=== PATIENT | female | born 1975 | race Caucasian/White ===

== ENCOUNTER 2016-03-20 13:51 | Emergency (ER) | payer SELFPAY ==
[2016-03-20] MEDS ORDERED: predniSONE 20 MG TAB ONE (14:04)
[2016-03-20] MEDS ORDERED: Benzonatate 100 MG CAP ONE (14:31)
--- NOTE | 2016-03-20 15:19 | PICIS ---
[facility] EMERGENCY RECORD TRIAGE (13:59 LGIB) TRIAGE NOTES: dry cough, wheezing. (13:59 LGIB) PATIENT: NAME: Shruti Shetty, AGE: 40, GENDER: female, : Sun 1975, TIME OF GREET: Mon Mar 20, 2016 13:52, PREFERRED LANGUAGE: [place], ETHNICITY: Not or , ECODE BILLING MAP: [facility], SSN: [id number], Zip Code: [address], KG WEIGHT: [phone], PHONE: , , , PERSON ID: [id number], PAYMENT: SJX Self Pay, PCP: none. (13:59 LGIB) COMPLAINT: Cough. (13:59 LGIB) ADMISSION: URGENCY: 4 Non Urgent, ADMISSION SOURCE: Home, TRANSPORT: CAR, BED: ER -02. (13:59 LGIB) SIRS SCORING: Heart Rate 55-109 (0), Temp range 96.8-101.1 (0), respiratory rate 12-24 (0), Mental Status altered: no (0), Total SIRS Score 0. (14:09 LGIB) PROVIDERS: TRIAGE NURSE: Ayana Collado RN. (13:59 LGIB) PREVIOUS VISIT ALLERGIES: No Known Drug Allergies. (13:59 LGIB) No Known Drug Allergies. (14:02 LGIB) KNOWN ALLERGIES No Known Drug Allergies CURRENT MEDICATIONS (14:01 LGIB) None VITAL SIGNS (14:02 LGIB) VITAL SIGNS: BP: 130/91, Pulse: 86, Resp: 20 (Non-Labored), Temp: 98.7 (Oral), O2 sat: 99 on Room Air, Time: 03/20/2016 14:02. NURSING ASSESSMENT: RESPIRATORY /CHEST (14:05 LGIB) CONSTITUTIONAL: Complex assessment performed, Patient arrives ambulatory, Gait steady, History obtained from patient, Patient appears comfortable, Patient cooperative, Patient alert, Oriented to person, place and time, Skin warm, Skin dry, Skin normal in color, Mucous membranes pink, Mucous membranes moist, Patient is well-groomed, Patient complains of cough. RESPIRATORY/CHEST: Lungs auscultated, Breath sounds with wheezing, diffusely, Respiratory assessment findings include respiratory effort easy, Respirations regular, Conversing normally, Neck and chest exam findings include trachea midline, Chest expansion equal, Chest movement symmetrical, no signs of distress, no retractions noted, no cyanosis, Associated with cough, dry. SAFETY: Side rails up, Cart/Stretcher in lowest position, Call light within reach, Hospital ID band on. NURSING PROCEDURE: DISCHARGE NOTE (14:42 LSMI) DISCHARGE: Patient discharged to home, ambulating without assistance, driving self, unaccompanied, Summary of Care printed/ provided, Transition record given to patient, Discharge instructions &a-1R&a+25V*p+0X*c7323Y*c202B*c15G*c2P*p-0X&a-25V&a+1R Name: Shruti Shetty : 1975 F40 MedRec: [id number] AcctNum: [id number] Prepared: [facility] Mar 23, 2016 10:53 by Interface Page 1 of 6 pMD [facility] EMERGENCY RECORD given to patient, Prescriptions given and instructions on side effects given. NURSING PROCEDURE: RESPIRATORY INTERVENTIONS (14:07 LGIB) RESPIRATORY INTERVENTIONS: Respiratory interventions indicated for wheezing, Pre-intervention oxygen saturation 99%, Notes: JONATHAN. SAFETY: Side rails up, Cart/Stretcher in lowest position, Call light within reach, Hospital ID band on. ORDER DETAILS Order Name: ERRT * Smal Vol Neb Initial Trmt, Status: Active, Time: 14:04 03/20/2016, User: CATHERINE, - Ordered for: DO Kraus Matthew, - Entered by: DO Kraus Matthew - [facility] Mar 20, 2016 14:04, - Quantity: 1. MEDICATION ADMINISTRATION SUMMARY Drug Name: *Ariana Perles, Dose Ordered: 1 cap(s), Route: Oral, Status: Given, Time: 14:33 03/20/2016, Drug Name: predniSONE oral, Dose Ordered: 60 mg, Route: Oral, Status: Given, Time: 14:07 03/20/2016, Drug Name: DuoNeb, Dose Ordered: 3 mL, Route: Nebulize, Status: Given, Time: 14:07 03/20/2016, *Additional information available in notes, Detailed record available in Medication Service section. MEDICATION SERVICE DuoNeb: Order: DuoNeb (ipratropium bromide/albuterol sulfate) - Dose: 3 mL : Nebulize Ordered by: Obinna Kraus DO Entered by: Obinna Kraus DO SunMar 20, 2016 14:04 Documented as given by: Ayana Collado RN SunMar 20, 2016 14:07 Patient, Medication, Dose, Route and Time verified prior to administration. Site: Medication administered via Hand-held nebulizer, With oxygen, Correct patient, time, route, dose and medication confirmed prior to administration, Patient advised of actions and side-effects prior to administration, Allergies confirmed and medications reviewed prior to administration, Patient in position of comfort, Side rails up, Cart in lowest position. : Follow Up : Response assessment performed, No signs or symptoms of allergic reaction noted. (14:33 LGIB) predniSONE oral: Order: predniSONE oral (prednisone) - Dose: 60 mg : Oral Ordered by: Obinna Kraus DO Entered by: Obinna Kraus DO SunMar 20, 2016 14:04 Documented as given by: Ayana Collado RN SunMar 20, 2016 14:07 Patient, Medication, Dose, Route and Time verified prior to &a-1R&a+25V*p+0X*f4929F*c202B*c15G*c2P*p-0X&a-25V&a+1R Name: Shruti Shetty : 1975 F40 MedRec: [id number] AcctNum: [id number] Prepared: [facility] Mar 23, 2016 10:53 by Interface Page 2 of 6 pMD [facility] EMERGENCY RECORD administration. Site: Medication administered P.O., Correct patient, time, route, dose and medication confirmed prior to administration, Patient advised of actions and side-effects prior to administration, Allergies confirmed and medications reviewed prior to administration, Patient in position of comfort, Side rails up, Cart in lowest position. Tessalon Perles: Order: Tessalon Perles (benzonatate) - Dose: 1 cap(s) : Oral Notes: VOV Dr Kraus Ordered by: Obinna Kraus DO Entered by: Ayana Collado RN SunMar 20, 2016 14:33 Documented as given by: Ayana Collado RN SunMar 20, 2016 14:33 Patient, Medication, Dose, Route and Time verified prior to administration. Site: Medication administered P.O., Correct patient, time, route, dose and medication confirmed prior to administration, Patient advised of actions and side-effects prior to administration, Allergies confirmed and medications reviewed prior to administration, Patient in position of comfort, Side rails up, Cart in lowest position. HPI URI (14:59 MBRI) CHIEF COMPLAINT: Patient presents for evaluation of sore throat, Patient presents for evaluation of nasal congestion, Patient presents for evaluation of cough. HISTORIAN: History provided by patient. LOCATION: Symptoms are generalized. QUALITY: Pain is dull in nature, described as aching. SEVERITY: Maximum severity of symptoms mild, Currently symptoms are mild. TIME COURSE: Gradual onset of symptoms, 5, days priror to arrival, Symptoms are worsening. ASSOCIATED WITH: No associated chest pain, Associated with chills, Associated with fever, No associated headache, No associated neck pain, No associated shortness of breath. EXACERBATED BY: Patient's condition exacerbated by nothing. RELIEVED BY: Patient's condition relieved by nothing. ROS (14:59 MBRI) CONSTITUTIONAL: Historian reports chills, reports fatigue, reports fever. EYES: Negative eye review of systems. ENT: Historian denies otalgia, reports rhinorrhea, reports sinus pain, reports sore throat. CARDIOVASCULAR: Historian denies chest pain, denies dyspnea on exertion. RESPIRATORY: Historian reports cough, denies shortness of breath, reports sputum, denies stridor, reports wheezing. &a-1R&a+25V*p+0X*r0451P*c202B*c15G*c2P*p-0X&a-25V&a+1R Name: Shruti Shetty : 1975 F40 MedRec: [id number] AcctNum: [id number] Prepared: SunMar 23, 2016 10:53 by Interface Page 3 of 6 pMD [facility] EMERGENCY RECORD GI: Negative gastrointestinal review of systems, Historian denies abdominal pain, denies diarrhea, denies nausea, denies vomiting. MUSCULOSKELETAL: Historian denies injury, Denies any musculoskeletal pain. SKIN: Negative skin review of systems, Historian denies skin changes. NEUROLOGIC: Historian denies dizziness, denies headache. PAST MEDICAL HISTORY (14:02 LGIB) MEDICAL HISTORY: No past medical history, Flu vaccine not up to date, Tetanus not up to date, Pneumococcal vaccine not up to date. FEMALE SURGICAL HISTORY: Surgical history of section, Surgical history of tubal ligation, Surgical history of cholecystectomy. Reviewed 03/20/16. PSYCHIATRIC HISTORY: No previous psychiatric history. Reviewed 03/20/16. SOCIAL HISTORY: Patient denies alcohol use, Patient denies drug use, Patient currently uses tobacco, smokes cigarettes, daily, Patient smokes 1/2 packs per day. Reviewed 03/20/16. PHYSICAL EXAM (14:59 MBRI) CONSTITUTIONAL: Vital Signs Reviewed, Nursing notes reviewed. HEAD: Head exam included findings of head atraumatic, normocephalic. EYES: Eye exam included findings of eyelids normal to inspection, Pupils equally round and reactive to light, Extraocular muscles intact. ENT: Ear exam normal, external ear normal, tympanic membranes normal, Pharynx exam normal. NECK: Neck exam normal, no cervical adenopathy, no tenderness. RESPIRATORY CHEST: Respiratory exam included findings of no respiratory distress, Wheezing present, posteriorally, to the left upper lobe, to the right upper lobe, No rales, No rhonchi, Breath sounds not diminished, Chest exam included findings of chest movement symmetrical, no tenderness. CARDIOVASCULAR: Cardiovascular exam included findings of heart rate regular rate and rhythm, Heart sounds normal, Carotids normal. UPPER EXTREMITY: Upper extremity exam included findings of inspection normal, Motor strength normal, Radial pulse normal, no cyanosis, no clubbing, no edema. NEURO: Neuro exam findings include patient oriented to person, place and time, Speech normal, Gait normal. EVENTS TRANSFER: Triage to Emergency Emergency Room -02. (SunMar 20, 2016 13:59 LGIB) Removed from Emergency Emergency Room -02. (14:46 LSMI) &a-1R&a+25V*p+0X*b2013N*c202B*c15G*c2P*p-0X&a-25V&a+1R Name: Shruti Shetty : 1975 F40 MedRec: [id number] AcctNum: [id number] Prepared: Maria Del Rosario Mar 23, 2016 10:53 by Interface Page 4 of 6 pMD [facility] EMERGENCY RECORD O2SAT INTERPRETATION (14:29 MBRI) O2SAT: Oxygen saturation interpretation: Normal. DOCTOR NOTES (14:59 MBRI) TEXT: After re-evaluation the patient appears to be resting comfortably. No further resp distress and lung exam is improved. No impending resp failure or airway issues are present at this time. I have discussed the continued treatment with the patient and family and have answered questions. I have discussed the strict reasons for return and follow-up and medication needs have been addressed. The patient is stable for d/c home at this time. PROBLEM LIST No recorded problems DIAGNOSIS FINAL: PRIMARY: ACUTE BRONCHITIS UNSPECIFIED, ADDITIONAL: asthma exacerbation - acute. (14:35 MBRI) PRIMARY: Acute bronchitis. (14:59 MBRI) DISPOSITION PATIENT: Disposition Type: Discharge, Disposition: *Discharge Home, Condition: Improved. (14:35 MBRI) Patient left the department. (14:46 LSMI) INSTRUCTION (14:36 MBRI) DISCHARGE: BRONCHITIS, ABX [place] (ADULT). FOLLOWUP: [facility], [facility], [address] [place] [address], , Follow up with Primary Care Physician in 7-10 days. SPECIAL: Please return for any further issues or concerns, we would be happy to see you. We hope you feel better soon. Follow-up with your PCP Tylenol or Advil for Pain Take Tylenol or Advil for Fever above 101 Oral. PRESCRIPTION (14:05 MBRI) albuterol: AEROSOL (GM) : 90 mcg : INHALATION : Quantity: 1 Unit: inhalation Route: INHALATION Schedule: every 4 hours prn Dispense: 1 May substitute. Refills: No Refills . NOTES: No refills. Mucinex DM: TABLET,EXTENDED RELEASE MULTIPHASE 12 HR : 1,200 mg-60 mg : ORAL : Quantity: 1 Unit: tab(s) Route: ORAL Schedule: every 12 hours Dispense: 20 May substitute. Refills: No Refills . NOTES: ^s=No refills No refills. predniSONE oral: TABLET : 20 mg : ORAL : Quantity: 3 &a-1R&a+25V*p+0X*e9419U*c202B*c15G*c2P*p-0X&a-25V&a+1R Name: Shruti Shetty : 1975 1 MedRec: [id number] AcctNum: [id number] Prepared: SunMar 23, 2016 10:53 by Interface Page 5 of 6 pMD [facility] EMERGENCY RECORD Unit: tab(s) Route: ORAL Schedule: once a day Dispense: 12 May substitute. Refills: No Refills . NOTES: ^s=^s=No refills No refills No refills. Zithromax oral: TABLET : 250 mg : ORAL : Quantity: 1 Unit: tab(s) Route: ORAL Schedule: once a day Dispense: 6 May substitute. Refills: No Refills . NOTES: 2 tabs po on day 1 then 1 tab po daily for 4 days No refills. IMAGING (14:45 LSMI) *DISCHARGE INSTRUCTIONS RECEIPT: Image captured from scanner. *SUPPLY CHARGE SHEET: Image captured from scanner. ADMIN (SunMar 23, 2016 10:47 MBRI) DIGITAL SIGNATURE: DO Kraus Matthew. Lewis: LGIB=RICAHRD Collado Lauren LSMI=CADY Jason Leah MBRI=DO Kraus Matthew &a-1R&a+25V*p+0X*g3951V*c202B*c15G*c2P*p-0X&a-25V&a+1R Name: Shruti Shetty : 1975 F40 MedRec: [id number] AcctNum: [id number] Prepared: SunMar 23, 2016 10:53 by Interface Page 6 of 6 pMD [facility] MEDICATION RECONCILIATION You were seen in the Emergency Department on: SunMar 20, 2016 KNOWN ALLERGIES No Known Drug Allergies MEDICATIONS GIVEN WHILE IN THE EMERGENCY DEPARTMENT DuoNeb (ipratropium bromide/albuterol sulfate) - Dose: 3 milliliter(s) : Nebulize predniSONE oral (prednisone) - Dose: 60 milligram(s) : Oral Tessalon Perles (benzonatate) - Dose: 1 cap(s) : Oral HOME MEDICATIONS None Notes from the emergency department Reviewed with patient PRESCRIPTIONS (4) Printed (4) albuterol : AEROSOL (GM) : 90 mcg : INHALATION Quantity: 1, Unit: inhalation, Route: INHALATION, Schedule: every 4 hours prn, Dispense: 1 Mucinex DM : TABLET,EXTENDED RELEASE MULTIPHASE 12 HR : 1,200 mg-60 mg : ORAL Quantity: 1, Unit: tab(s), Route: ORAL, Schedule: every 12 hours, Dispense: 20 predniSONE oral : TABLET : 20 mg : ORAL Quantity: 3, Unit: tab(s), Route: ORAL, Schedule: once a day, Dispense: 12 &a-1R&a+25V*p+0X*t2129E*c202B*c15G*c2P*p-0X&a-25V&a+1R Name: Shruti Shetty : 1975 F40 MedRec: [id number] AcctNum: [id number] Prepared: [facility] Mar 23, 2016 10:53 by Interface pMD AMADOR
--- NOTE | 2016-03-20 15:22 | ERRECORD ---
[facility] EMERGENCY RECORD HPI URI (14:59 MBRI) CHIEF COMPLAINT: Patient presents for evaluation of sore throat, Patient presents for evaluation of nasal congestion, Patient presents for evaluation of cough. HISTORIAN: History provided by patient. LOCATION: Symptoms are generalized. QUALITY: Pain is dull in nature, described as aching. SEVERITY: Maximum severity of symptoms mild, Currently symptoms are mild. TIME COURSE: Gradual onset of symptoms, 5, days priror to arrival, Symptoms are worsening. ASSOCIATED WITH: No associated chest pain, Associated with chills, Associated with fever, No associated headache, No associated neck pain, No associated shortness of breath. EXACERBATED BY: Patient's condition exacerbated by nothing. RELIEVED BY: Patient's condition relieved by nothing. ROS (14:59 MBRI) CONSTITUTIONAL: Historian reports chills, reports fatigue, reports fever. EYES: Negative eye review of systems. ENT: Historian denies otalgia, reports rhinorrhea, reports sinus pain, reports sore throat. CARDIOVASCULAR: Historian denies chest pain, denies dyspnea on exertion. RESPIRATORY: Historian reports cough, denies shortness of breath, reports sputum, denies stridor, reports wheezing. GI: Negative gastrointestinal review of systems, Historian denies abdominal pain, denies diarrhea, denies nausea, denies vomiting. MUSCULOSKELETAL: Historian denies injury, Denies any musculoskeletal pain. SKIN: Negative skin review of systems, Historian denies skin changes. NEUROLOGIC: Historian denies dizziness, denies headache. PAST MEDICAL HISTORY (14:02 LGIB) MEDICAL HISTORY: No past medical history, Flu vaccine not up to date, Tetanus not up to date, Pneumococcal vaccine not up to date. FEMALE SURGICAL HISTORY: Surgical history of section, Surgical history of tubal ligation, Surgical history of cholecystectomy. Reviewed 03/20/16. PSYCHIATRIC HISTORY: No previous psychiatric history. Reviewed 03/20/16. SOCIAL HISTORY: Patient denies alcohol use, Patient denies drug use, Patient currently uses tobacco, smokes cigarettes, daily, Patient smokes 1/2 packs per day. Reviewed 03/20/16. KNOWN ALLERGIES &a-1R&a+25V*p+0X*k4011K*c202B*c15G*c2P*p-0X&a-25V&a+1R Name: Shruti Shetty : 1975 F40 MedRec: [id number] AcctNum: [id number] Prepared: SunMar 23, 2016 10:53 by Interface Page 1 of 3 pMD [facility] EMERGENCY RECORD No Known Drug Allergies CURRENT MEDICATIONS (14:01 LGIB) None VITAL SIGNS (14:02 LGIB) VITAL SIGNS: BP: 130/91, Pulse: 86, Resp: 20 (Non-Labored), Temp: 98.7 (Oral), O2 sat: 99 on Room Air, Time: 03/20/2016 14:02. PHYSICAL EXAM (14:59 MBRI) CONSTITUTIONAL: Vital Signs Reviewed, Nursing notes reviewed. HEAD: Head exam included findings of head atraumatic, normocephalic. EYES: Eye exam included findings of eyelids normal to inspection, Pupils equally round and reactive to light, Extraocular muscles intact. ENT: Ear exam normal, external ear normal, tympanic membranes normal, Pharynx exam normal. NECK: Neck exam normal, no cervical adenopathy, no tenderness. RESPIRATORY CHEST: Respiratory exam included findings of no respiratory distress, Wheezing present, posteriorally, to the left upper lobe, to the right upper lobe, No rales, No rhonchi, Breath sounds not diminished, Chest exam included findings of chest movement symmetrical, no tenderness. CARDIOVASCULAR: Cardiovascular exam included findings of heart rate regular rate and rhythm, Heart sounds normal, Carotids normal. UPPER EXTREMITY: Upper extremity exam included findings of inspection normal, Motor strength normal, Radial pulse normal, no cyanosis, no clubbing, no edema. NEURO: Neuro exam findings include patient oriented to person, place and time, Speech normal, Gait normal. MEDICATION ADMINISTRATION SUMMARY Drug Name: *Tesroshantamra Perlunique, Dose Ordered: 1 cap(s), Route: Oral, Status: Given, Time: 14:33 03/20/2016, Drug Name: predniSONE oral, Dose Ordered: 60 mg, Route: Oral, Status: Given, Time: 14:07 03/20/2016, Drug Name: DuoNeb, Dose Ordered: 3 mL, Route: Nebulize, Status: Given, Time: 14:07 03/20/2016, *Additional information available in notes, Detailed record available in Medication Service section. DOCTOR NOTES (14:59 MBRI) TEXT: After re-evaluation the patient appears to be resting comfortably. No further resp distress and lung exam is improved. No impending resp failure or airway issues are present at this time. I have discussed the continued treatment with the patient and family and have answered questions. I have discussed the strict reasons for return and follow-up and medication needs have been addressed. The &a-1R&a+25V*p+0X*i3730O*c202B*c15G*c2P*p-0X&a-25V&a+1R Name: Shruti Shetty : 1975 F40 MedRec: [id number] AcctNum: [id number] Prepared: Maria Del Rosario Mar 23, 2016 10:53 by Interface Page 2 of 3 pMD [facility] EMERGENCY RECORD patient is stable for d/c home at this time. PROBLEM LIST No recorded problems DIAGNOSIS FINAL: PRIMARY: ACUTE BRONCHITIS UNSPECIFIED, ADDITIONAL: asthma exacerbation - acute. (14:35 MBRI) PRIMARY: Acute bronchitis. (14:59 MBRI) PRESCRIPTION (14:05 MBRI) albuterol: AEROSOL (GM) : 90 mcg : INHALATION : Quantity: 1 Unit: inhalation Route: INHALATION Schedule: every 4 hours prn Dispense: 1 May substitute. Refills: No Refills . NOTES: No refills. Mucinex DM: TABLET,EXTENDED RELEASE MULTIPHASE 12 HR : 1,200 mg-60 mg : ORAL : Quantity: 1 Unit: tab(s) Route: ORAL Schedule: every 12 hours Dispense: 20 May substitute. Refills: No Refills . NOTES: ^s=No refills No refills. predniSONE oral: TABLET : 20 mg : ORAL : Quantity: 3 Unit: tab(s) Route: ORAL Schedule: once a day Dispense: 12 May substitute. Refills: No Refills . NOTES: ^s=^s=No refills No refills No refills. Zithromax oral: TABLET : 250 mg : ORAL : Quantity: 1 Unit: tab(s) Route: ORAL Schedule: once a day Dispense: 6 May substitute. Refills: No Refills . NOTES: 2 tabs po on day 1 then 1 tab po daily for 4 days No refills. DISPOSITION PATIENT: Disposition Type: Discharge, Disposition: *Discharge Home, Condition: Improved. (14:35 MBRI) Patient left the department. (14:46 LSMI) Lewis: LGIB=RICHARD Collado, Ayana LSMI=CADY Jason Leah MBRI=DO Kraus Matthew &a-1R&a+25V*p+0X*s1286R*c202B*c15G*c2P*p-0X&a-25V&a+1R Name: ShettyShruti : 1975 F40 MedRec: [id number] AcctNum: [id number] Prepared: Maria Del Rosario Mar 23, 2016 10:53 by Interface Page 3 of 3 pMD MTDD
== END 2016-03-20 14:42 | disposition home or self-care (01) ==
LOC: BURERS 13:51
DX: J45.901 Unspecified asthma with (acute) exacerbation (principal); J20.9 Acute bronchitis, unspecified; F17.210 Nicotine dependence, cigarettes, uncomplicated
CPT/HCPCS: 94640; J7506; J7620

== ENCOUNTER 2017-02-02 18:04 | Emergency (ER) | payer OTHER, SELFPAY ==
[2017-02-02] MEDS ORDERED: predniSONE 20 MG TAB ONE (18:24)
[2017-02-02] MEDS ORDERED: AMOXicillin 250 MG CAP ONE (18:24)
== END 2017-02-02 18:28 | disposition home or self-care (01) ==
LOC: BURERS 18:04
DX: J20.9 Acute bronchitis, unspecified (principal); F17.210 Nicotine dependence, cigarettes, uncomplicated
CPT/HCPCS: 99283; J7506

== ENCOUNTER 2017-03-19 21:23 | Emergency (ER) | payer OTHER | END 2017-03-19 22:08 | disposition home or self-care (01) | LOC: BURERS 21:23 | DX: J11.1 Influenza due to unidentified influenza virus with other respiratory manifestations (principal); F17.210 Nicotine dependence, cigarettes, uncomplicated | CPT/HCPCS: 99283 ==

== ENCOUNTER 2017-05-17 08:50 | Emergency (ER) | payer OTHER, SELFPAY ==
[2017-05-17] MEDS ORDERED: Benzonatate 100 MG CAP ONE (09:08)
[2017-05-17] MEDS ORDERED: methylPREDNISolone Sod Succ/PF 125 MG/2 ML VIAL ONE (09:08)
== END 2017-05-17 09:18 | disposition home or self-care (01) ==
LOC: BURERS 08:50
DX: R05 Cough (principal); F17.210 Nicotine dependence, cigarettes, uncomplicated
CPT/HCPCS: 96372; J2930

== ENCOUNTER 2017-11-12 21:59 | Emergency (ER) | payer SELFPAY ==
[2017-11-12] MEDS ORDERED: AMOXicillin 250 MG CAP ONE (22:27)
[2017-11-12] MEDS ORDERED: Dexamethasone 4 mg/ml Vial ONE (22:27)
[2017-11-12] MEDS ORDERED: Albuterol Sulfate 2.5 mg/3 ml Neb ONE (22:28)
== END 2017-11-12 23:00 | disposition home or self-care (01) ==
LOC: BURERS 21:59
DX: J40 Bronchitis, not specified as acute or chronic (principal); I10 Essential (primary) hypertension; F17.210 Nicotine dependence, cigarettes, uncomplicated; Z79.899 Other long term (current) drug therapy
CPT/HCPCS: 94640; 94760; J1100; J7611; J7620

== ENCOUNTER 2018-05-06 19:56 | Emergency (ER) | payer OTHER, SELFPAY ==
[2018-05-06] MEDS ORDERED: AMOXicillin 250 MG CAP ONE (20:15)
== END 2018-05-06 20:18 | disposition home or self-care (01) ==
LOC: BURERS 19:56
DX: J01.90 Acute sinusitis, unspecified (principal); F17.210 Nicotine dependence, cigarettes, uncomplicated; Z79.51 Long term (current) use of inhaled steroids
CPT/HCPCS: 99283

== ENCOUNTER 2018-10-04 18:12 | Emergency (ER) | payer OTHER | END 2018-10-04 18:46 | disposition home or self-care (01) | LOC: BURERS 18:12 | DX: M72.2 Plantar fascial fibromatosis (principal); F17.210 Nicotine dependence, cigarettes, uncomplicated | CPT/HCPCS: 99281 ==

== ENCOUNTER 2018-12-17 11:50 | Emergency (ER) | payer OTHER ==
[2018-12-17] MEDS ORDERED: predniSONE 20 MG TAB ONE (13:10)
[2018-12-17] MEDS ORDERED: Azithromycin 250 MG TAB ONE (13:10)
--- NOTE | 2018-12-17 16:46 | RAD ---
CHEST TWO VIEWS: 12/17/2018 FINDINGS: The heart is normal in size and the lungs are clear. No infiltrate or effusion is seen. There is no c urrent sign of pneumonia. IMPRESSION: No acute findings. POS: HOME
== END 2018-12-17 13:14 | disposition home or self-care (01) ==
LOC: BURERS 11:50
DX: R06.2 Wheezing (principal); R05 Cough; I10 Essential (primary) hypertension; F17.210 Nicotine dependence, cigarettes, uncomplicated
CPT/HCPCS: 71046; J7512

== ENCOUNTER 2019-09-29 18:03 | Emergency (ER) | payer OTHER ==
[2019-09-29 18:51] LABS: Bilirubin Negative (Negative); Blood, Urine Negative (Negative); Clarity Clear (Clear); Glucose, Urine (Dipstick) Negative (Negative); Ketone, Urine Negative (Negative); Leukocyte Negative (Negative); Nitrite Negative (Negative); Protein, Urine (Dipstick) Negative (Neg-Trace); Specific Gravity, Urine 1.025 (1.005-1.030); Urobilinogen 0.2 mg/dL (Less than 2)
[2019-09-29] MEDS ORDERED: Ketorolac Tromethamine 60 MG/2 ML VIAL ONE (19:02)
== END 2019-09-29 19:20 | disposition home or self-care (01) ==
LOC: BURERS 18:03
DX: M54.6 Pain in thoracic spine (principal); F17.210 Nicotine dependence, cigarettes, uncomplicated
CPT/HCPCS: 81003; 96372; 99283; J1885

== ENCOUNTER 2020-08-03 13:59 | Emergency (ER) | payer OTHER ==
[2020-08-03] MEDS ORDERED: predniSONE 20 MG TAB ONE (14:45)
[2020-08-03] MEDS ORDERED: Doxycycline 100 MG CAP ONE (14:53)
== END 2020-08-03 14:56 | disposition home or self-care (01) ==
LOC: BURERS 13:59
DX: J22 Unspecified acute lower respiratory infection (principal); F17.210 Nicotine dependence, cigarettes, uncomplicated
CPT/HCPCS: 71046; J7512

== ENCOUNTER 2020-11-13 20:29 | Emergency (ER) | payer OTHER, SELFPAY ==
[2020-11-13] MEDS ORDERED: Sulfameth/Trimethoprim DS 800-160mg TAB ONE (21:46)
== END 2020-11-13 21:50 | disposition home or self-care (01) ==
LOC: BURERS 20:29
DX: N75.1 Abscess of Bartholin's gland (principal); S70.02XA Contusion of left hip, initial encounter; F17.210 Nicotine dependence, cigarettes, uncomplicated
CPT/HCPCS: 56420

== ENCOUNTER 2020-11-16 18:44 | Emergency (ER) | payer SELFPAY | END 2020-11-16 19:05 | disposition home or self-care (01) | LOC: BURERS 18:44 | DX: N75.1 Abscess of Bartholin's gland (principal); M19.90 Unspecified osteoarthritis, unspecified site; J40 Bronchitis, not specified as acute or chronic; F17.210 Nicotine dependence, cigarettes, uncomplicated | CPT/HCPCS: 99282 ==

== ENCOUNTER 2020-11-23 10:25 | Emergency (ER) | payer SELFPAY | END 2020-11-23 12:06 | disposition home or self-care (01) | LOC: BURERS 10:25 | DX: Z48.01 Encounter for change or removal of surgical wound dressing (principal); J40 Bronchitis, not specified as acute or chronic; F17.210 Nicotine dependence, cigarettes, uncomplicated | CPT/HCPCS: 99282 ==

== ENCOUNTER 2022-02-26 15:31 | Emergency (ER) | payer SELFPAY ==
[2022-02-26] MEDS ORDERED: Azithromycin 250 MG TAB ONE (16:20)
== END 2022-02-26 16:31 | disposition home or self-care (01) ==
LOC: BURERS 15:31
DX: J44.0 Chronic obstructive pulmonary disease with (acute) lower respiratory infection (principal); J20.9 Acute bronchitis, unspecified
CPT/HCPCS: 71045; 87081; 87430; 87804

== ENCOUNTER 2024-12-23 13:22 | Emergency (ER) | payer SELFPAY ==
[2024-12-23] MEDS ORDERED: Amoxicillin/Potassium Clav 875 MG TAB ONE (13:33)
== END 2024-12-23 14:08 | disposition home or self-care (01) ==
LOC: BURERS 13:22
DX: K04.7 Periapical abscess without sinus (principal); K02.9 Dental caries, unspecified; F17.210 Nicotine dependence, cigarettes, uncomplicated
CPT/HCPCS: 99283